=== PATIENT | female | born 1990 | race Caucasian/White ===

== ENCOUNTER → 2016-12-31 | Outpatient (CLI) | payer BC | LOC: BMCIMAGING 09:32 | PROVIDERS: ATTEND Family Medicine | DX: S93.401A Sprain of unspecified ligament of right ankle, initial encounter (principal); X50.9XXA Other and unspecified overexertion or strenuous movements or postures, initial encounter; Y93.02 Activity, running ==

== ENCOUNTER → 2017-05-11 | Outpatient (CLI) | payer BC | LOC: EDSTATUS 10:31 → FIMAGING 13:46 | PROVIDERS: ATTEND Physician Assistant | DX: R10.9 Unspecified abdominal pain (principal) ==

== ENCOUNTER 2019-03-06 19:16 | Emergency (ER) | payer OTHER | END 2019-03-06 21:25 | disposition home or self-care (01) ==

== ENCOUNTER → 2019-03-12 | Outpatient (CLI) | payer OTHER | LOC: FIMAGING 09:08 ==

== ENCOUNTER → 2019-03-28 | Outpatient (CLI) | payer OTHER | LOC: FCPNEURO 08:13 ==